=== PATIENT | male | born 1960 | race Caucasian/White ===

== ENCOUNTER 2024-12-10 13:24 | Emergency (ER) | payer SELFPAY ==
[2024-12-10 13:25] VITALS: BP 132/92; PULSE 105; RESP 20; TEMP 37.2; O2SAT 97
[2024-12-10] MEDS: TETANUS,DIPHTHERIA,AC PERTUSSIS ADULT 0.5 ML (ADACEL) IM (13:48)
[2024-12-10] MEDS: NEOMYCIN/POLYMYXIN/BACITRACIN OINTMENT PACKET 1 PACKET TOPICAL (13:48)
--- NOTE | 2024-12-10 13:50 | ED.EXTPRO ---
HPI - Extremity Problem General Chief complaint: Extremity Problem,Nontraumatic Stated complaint: infected finger Source: patient Mode of arrival: ambulatory Limitations: no limitations History of Present Illness HPI Narrative: this is a 64-year-old male with no significant past medical history presents with a infected right index finger with some fluctuant fluid around the paronychial area of his right index finger with some throbbing sensation and redness there is no fever chills states that he was cleaning bushes about 4 5 days ago and possibly got infected in that in that manner. No fever chills no chest pain no shortness of breath no abdominal pain no nausea vomiting. Complaint: extremity pain Onset (ago): day(s) Location: right Related Data Allergies Allergy/AdvReac Type Severity Reaction Status Date / Time No Known Allergies Allergy Unverified 10/03/17 11:55 Review of Systems Review of Systems: All systems reviewed & are unremarkable except as noted in HPI and below PMFSH Social History Social History Smoking status: Current every day smoker Exam Const: General: healthy appearing, no acute distress and alert Nutritional Appearance: well nourished Orientation/consciousness: patient oriented x3 Limitations: no limitations HENMT: Head: normal to inspection Chest: Chest palpation & inspection: normal inspection of the chest Resp: Effort & Inspection: normal respiratory effort Auscultation: clear to auscultation bilaterally Cardio: Rate: regular rate Rhythm: regular rhythm GI: GI Palp: Yes Soft to palpation Auscultation: normal bowel sounds Skin: Wounds: wounds noted Other: paronychial fluid around the right index finger Neuro: General: patient oriented x3 and moves all extremities Course Course Emergency Course: patient patient received IM ceftriaxone 1g along triple antibiotic ointment was updated with his tetanus and 11 blade along with Betadine was used to plants and removed the fluctuant fluid from the right peroneal area that was cultured as well. Vital Signs Vital signs: Vital Signs Temperature 37.2 C 12/10/24 13:25 Pulse Rate 105 H 12/10/24 13:25 Respiratory Rate 20 12/10/24 13:25 Blood Pressure 132/92 H 12/10/24 13:25 Pulse Oximetry 97 12/10/24 13:25 Oxygen Delivery Room Air 12/10/24 13:25 Temperature 37.2 C 12/10/24 13:25 Pulse Rate 105 H 12/10/24 13:25 Respiratory Rate 20 12/10/24 13:25 Blood Pressure 132/92 H 12/10/24 13:25 Pulse Oximetry 97 12/10/24 13:25 Oxygen Delivery Room Air 12/10/24 13:25 Critical Care Time Critical Care Time Critical Care Time: No Discharge Plan Discharge Clinical Impression: Paronychia of finger Qualifiers: Laterality: right Qualified Code(s): L03.011 - Cellulitis of right finger Patient Disposition: Home Condition: Stable Instructions: Antibiotic Form, Paronychia (ED) Additional Instructions: advised patient to take medicine as prescribed and to follow with primary care physician if symptoms persist or worsen. Patient Language: Lithuanian Prescriptions: New amoxicillin-pot clavulanate [Augmentin] 500-125 mg tablet 1 tablet PO TID Qty: 30 0RF mupirocin [Centany] 2 % ointment 1 applic topical TID 7 Days Qty: 15 0RF Follow-up/Referrals: Isai Alves DO [Primary Care Provider, Family Practice]
[2024-12-10] MEDS: cefTRIAXone 1 GM, LIDOCAINE 1% LOCAL INJ 2.1 ML IM (13:51)
--- OUTSIDE RECORDS SUMMARY | 2024-12-10 15:09 | XMS_ITS | Clinical Summary ---
Author Organization [facility] [address] Address [address] [place] [address] Care Team Providers Care Senior Python Developer Name Role Phone Rubio Oshea MD Primary Care Provide r Allergies No known active allergies Medications clopidogrel (PLAVIX) 75 mg tablet Take 75 mg by mouth daily. Active nitroglycerin (NITROSTAT) 0.[address] 0.4 mg under the tongue every 5 (five) minutes as needed for chest pain. Active aspirin 81 mg tablet Take 81 mg by mouth daily. Active atorvastatin (LIPITOR) 40 mg tablet TAKE ONE TABLET BY MOUTH DAILY 90 tablet 1 06/12/2018 Active metoprolol (LOPRESSOR) 25 mg tablet TAKE ONE TABLET BY MOUTH TWICE A DAY 180 tablet 1 08/23/2018 Active Active Problems Problem Noted Date Diagnosed Date Coronary artery disease invo [place]ving [place] coronary artery of [place] heart without angina pectoris 09/24/2017 History of coronary artery stent placement 09/24 Family History Medical History Relation Name Comments No Known Problems Brother No Known Problems Father No Known Problems Father's Brother No Known Problems Father's Sister No Known Problems Maternal Grandfather No Known Problems Maternal Grandmother No Known Problems Mother No Known Problems Mother's Brother No Known Problems Mother's Sister No Known Problems Other No Known Problems Paternal Grandfather No Known Problems Paternal Grandmother No Known Problems Sister Anemia Neg Hx Arrhythmia Neg Hx Asthma Neg Hx Clotting disorder Neg Hx Fainting Neg Hx Heart attack Neg Hx Heart disease Neg Hx Heart failure Neg Hx Hyperlipidemia Neg Hx Hypertension Neg Hx Hypertrophic cardiomyopathy Neg Hx Stroke Neg Hx Sudden Cardiac Neg Hx Relation Name Status Comments Brother Father Father's Brother Father's Sister Maternal Grandfather Maternal Grandmother Mother Mother's Brother Mother's Sister Other Paternal Grandfather Paternal Grandmother Sister Social History Tobacco Use Types Packs/Day Years Used Date Smoking Tobacco: Former Cigarettes Comments:2 Packs per Day Sex and Gender Information Value Date Recorded Sex Assigned at Not on file 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 Gender Identity Not on file Sexual Orientation Not on file Obstetrics History Last Filed Vital Signs Vital Sign Reading Time Taken Comments Blood Pressure 102/70 12/03/2017 10:32 AM CDT Pulse 68 12/03/2017 10:32 AM CDT Temperature - - Respiratory Rate 17 09/24/2017 1:15 PM CDT Oxygen Saturation 96% 12/03/2017 10:32 AM CDT Inhaled Oxygen Concentration - - Weight 86.6 kg (191 lb) 12/03/2017 10:32 AM CDT Height 167.6 cm (5' 6) 12/03/2017 10:32 AM CDT Body Mass Index 30.83 12/03/2017 10:32 AM CDT Plan of Treatment Not on file Insurance [facility] MEDICAID Care Teams Senior Python Developer Relationship Specialty Start Date End Date Rubio Oshea MD [address] [place] [address] PCP - General Family Medicine 9/4/18
--- OUTSIDE RECORDS SUMMARY | 2024-12-10 15:09 | XMS_ITS | Encounter Summary ---
Author Organization [facility] Healthcare Address [address] [place] [address] Care Team Providers Care Design/Animation Instructor Name Role Phone Peng Pastrana MD Primary Care Provider Rubio Oshea MD Primary Care Provide r Encounter Details Date Type Department Care Team (Late st Contact Info) Description 10/04/2017 Orders Only [facility] Health Information Management [address] [place] [id number] Scanning, Provider Social History Tobacco Use Types Packs/Day Years Used Date Smoking Tobacco: Former Cigarettes Comments:2 Packs per Day Sex and Gender Information Value Date Recorded Sex Assigned at Not on file 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 Gender Identity Not on file Sexual Orientation Not on file documented as of this encounter Plan of Treatment Not on file documented as of this encounter Procedures Procedure Name Priority Date/Time Associated Diagnosis Comments SCAN - LABS 10/04/2017 documented in this encounter Results * SCAN - LABS (10/04/2017) Provider Scanning Final Result documented in this encounter Visit Diagnoses Not on filedocumented in this encounter Care Teams Design/Animation Instructor Relationship Specialty Start Date End Date Peng Pastrana MD [address] [address] PCP - General Family Medicine 09/24/17 12/02/17 Rubio Oshea MD [address] [place] [address] PCP - General Family Medicine 12/03/17 documented as of this encounter
--- OUTSIDE RECORDS SUMMARY | 2024-12-10 15:52 | XMS_ITS | Encounter Summary ---
Author Organization [facility] Healthcare Address [address] [place] [address] Care Team Providers Care Power Technician Name Role Phone Peng Pastrana MD Primary Care Provider [phone] Rubio Oshea MD Primary Care Provide r Encounter Details Date Type Department Care Team (Late st Contact Info) Description 10/04/2017 Orders Only [facility] [place] Health Information Management [address] [place] [id number] Scanning, Provider Social History Tobacco Use Types Packs/Day Years Used Date Smoking Tobacco: Former Cigarettes Comments:2 Packs per Day Sex and Gender Information Value Date Recorded Sex Assigned at Not on file 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
--- OUTSIDE RECORDS SUMMARY | 2024-12-10 15:52 | XMS_ITS | Clinical Summary ---
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
--- NOTE | 2024-12-12 14:01 | PC.NURSE ---
Finger culture report; Gram stain- moderate gram negative rods, moderate gram positive cocci Aerobic bacterial culture- will follow Patient discharged on Augmentin wit mupirocin ointment, per ERP wait for final report.
--- NOTE | 2024-12-14 12:45 | PC.NURSE ---
GRAM STAIN RESULT REPORT: MODERATE GRAM NEGATIVE RODS AND MODERATE NUMBER OF GRAM POSITIVE COCCI. FINAL BACTERIAL CULTURE: MIXED SKIN JEANETTE. RESULTS SHOWN TO Ercik BERRY MD. NO CHANGE IN TREATMENT AT THIS TIME.
== END 2024-12-10 13:58 | disposition home or self-care (01) ==
LOC: CHSED 14:05
PROVIDERS: Emergency Provider Emergency Medicine; PCP Family Medicine
DX: L03.011 Cellulitis of right finger (principal); F17.200 Nicotine dependence, unspecified, uncomplicated; Z23 Encounter for immunization
CPT/HCPCS: 87070; 87205; 90715; 96372; 99284; J0696; J2003